=== PATIENT | female | born 1980 | race American Indian/Alaskan Native ===

== ENCOUNTER 2017-04-23 15:15 | Emergency (ER) | payer MEDICAID, OTHER ==
[2017-04-23 17:28] LABS: Bacteria,Urine 1+ /HPF (Negative); Bilirubin,Urine NEG (Negative); Blood,Urine NEG (Negative); Ketones,Urine NEG (Negative); Leukocyte Esterase,Urine NEG (Negative); Nitrite,Urine NEG (Negative); Protein,Urine <15 mg/dL mg/dL (Negative); WBC,Urine < 1.0 /HPF (0.0-6.0)
[2017-04-23] MEDS ORDERED: MOTRIN PO ONE (19:37)
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
--- NOTE | 2017-04-23 20:30 | XRay Report ---
FINAL REPORT PROCEDURE: XR SPINE LUMBOSACRAL 2-3V TECHNIQUE: Lumbar spine radiographs, including AP, lateral, and lumbosacral spot views. CPT 83411 HISTORY: lower back pain COMPARISON: No prior studies are available for comparison. FINDINGS: No fracture or subluxation is visualized. Minimal anterior osteophytic spurring is visualized L1-2 in the L2-3 disc spaces. Disc spaces otherwise are well maintained. There does appear to be mild lumbar scoliosis present convex the right apex at L3. Bone density appears normal. Posterior elements are intact. IMPRESSION: Mild scoliosis and mild degenerative disc disease. No acute abnormalities are identified..
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
[2017-04-23 21:51] VITALS: BP 118/77
== END 2017-04-23 21:50 | disposition home or self-care (01) ==
LOC: ED 15:15
DX: M54.5 Low back pain (principal); V49.19XA Passenger injured in collision with other motor vehicles in nontraffic accident, initial encounter; Y93.89 Activity, other specified; Y92.89 Other specified places as the place of occurrence of the external cause; Y99.8 Other external cause status
CPT/HCPCS: 72100; 81001; 81025; 99284